=== PATIENT | female | born 1955 | race Caucasian/White ===

== ENCOUNTER 2021-02-24 13:00 | Outpatient (RCR) | payer OTHER, SELFPAY ==
--- NOTE | 2020-12-28 11:41 | STOPEVAL ---
SPEECH THERAPY INITIAL EVALUATION: Thank you for referring Ronald Christianson to [facility].? The patient is scheduled to be seen for therapy?2x/week for 5 weeks. Please review, sign, date and return this plan of care CHANNING. I agree with and certify that the following plan of care is medically necessary. Referring Physician Date Attending Provider: Isabela Tapia, Outpatient Past Medical History Past Medical History Source of Past Medical History Patient Neurological History Hx Cerebrovascular Accident (CVA) Yes: November 08, 2020 Cardiovascular History Hx Hypertension Yes Hx Internal Defibrillator Yes: pt unsure Respiratory History Hx Pneumonia Yes Hematological History Hx Other Hematological Disorders Yes:recent treatment for HEP C Evaluation Information Problem Diagnosis CVA Onset 11-07-20 Additional Evaluation Detail On the morning of 11-07 s/s started with difficulty texting. Pt laid down & didn't think anything of it. That next day she went to have lab work done for HEP C which she was being treated for at the time. She went to work and noticed she was having difficulty talking when she was making phone calls. 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 She was then taken to the hospital via an ambulance. CC: Pt's chief complaint is she has difficulty getting words out and its only sometimes . 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 She has not received ST since hospitalization which she was admitted for only 1 and half days. She states that she has been unable to drive. Prior Level of Function Activity Level (Last 3 Months) Occupation sports marketing internship Hand Dominance Right Activity of Daily Living Ability Independent Indoor/Home Mobility Independent Community Mobility Independent Stairs
--- NOTE | 2020-12-30 15:33 | PCSTNOTE ---
Patient did not show up for scheduled appointment this date. Pt was called re missed appt; she did not answer but a message was left instructing her when her next appt is and to call if she is unable to attend appt.
--- NOTE | 2021-01-19 09:26 | PCSTNOTE ---
Pt complained of difficulty finding words. Verbal expression goals were added to care plan upon informal assessment confirmed and revealed mild anomia.
--- NOTE | 2021-01-29 12:57 | STOPEVAL ---
SPEECH THERAPY PROGRESS NOTE AND PLAN OF CARE UPDATE: Thank you for referring Ronald Christianson to [facility].? The patient is scheduled to be seen for therapy?1x/week for 4 weeks. Please review, sign, date and return this plan of care CHANNING. I agree with and certify that the following plan of care is medically necessary. Referring Physician Date Attending Provider: Isabela Tapia, RE Language Evaluation Verbal Expression Overall Verbal Expression Ability Mild Deficits Comments Related to Verbal Expression Discussed use of compensatory strategies. Pt requires min assist in utilization. Throughout the course of therapy, anomia was more prominent that initially noted on evaluation; however, pt is progressing with the use of learned compensatory strategies. Apraxia Evaluation Apraxia Evaluation Imitation of Single Sounds (%) 100 Imitation of One-Syllable Words (%) 100 Imitation of Multi-Syllable Words (%) 90 Diadokokinetic Rates Accuracy Precise,Rate Normal Sound Sequencing (%) 80 Imitating Sentences (%) 90 Conversational Speech Characteristics Better Automatics,Error Awareness,Inconsistent Errors, Transposition Errors Apraxia Evaluation Comments Intermittent audible searching and occasionally exhibits numerous attempts during responding to questions. Speech Therapy Teaching Speech Therapy Teaching Teaching Topic Swallowing/Communication Topic Component Aphasia,Apraxia As Pertains To Verbal Expression Recipient(s) of Teaching Patient Learning Preferences Discussion Barriers to Learning None Readiness to Learn Excellent Teaching Method(s) Discussion Response(s) to Teaching Verbalizes Understanding ST Clinical Summary Clinical Summary ST Clinical Summary Overall, upon re evaluation, the pt presents with improvement in the areas of word finding and fluency. Pt is able to fluently produce connected speech with minimal oral motor planning impairment ; she rarely exhibits struggle behaviors/difficulty initiating or audible searching and no longer has numerous attempts with
--- NOTE | 2021-02-24 13:39 | STOPEVAL ---
SPEECH THERAPY DISCHARGE: Thank you for referring Ronald Christianson to [facility]. Pt has completed 11 [address] sessions focusing on verbal expression, processing,and fluency. Pt has achieved all set goals; therefore, ST discharge is recommended, Please review, sign, date and return this discharge plan CHANNING. I agree with ST discharge. Referring Physician Date Attending Provider: Isabela Tapia, *ST Outpatient Evaluation/Discharge Verbal Expression Automatic Cued Speech (% Accuracy (0-100 100 )) Open Ended Cued Speech (% Accuracy (0- 95 100)) WH Questions (% Accuracy (0-100)) 90 Confrontational Naming (% Accuracy (0- 100 100)) Stating Object Function (% Accuracy (0- 100 100)) Sentence Formation Given a Stimulus Word 90 (% Accuracy (0-100)) Sentence Formation in Spontaneous 90 Conversation Overall Verbal Expression Ability WFL Comments Related to Verbal Expression - divergent namin-10 in 60 seconds 90% accuracy. - listing steps/explaining/& answering why questions: 90% ST Clinical Summary Clinical Summary ST Clinical Summary Overall, upon re evaluation, the pt has improved in the areas of word finding and fluency. Pt is able to fluently produce connected speech with trace to minimal oral motor planning impairment ; she rarely exhibits struggle behaviors/difficulty initiating or audible searching and no longer has numerous attempts with verbalizations. 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 No further ST is recommended at this time . ST Services Indicated No Rehabilitation Potential Excellent Potential Barriers to Goal Achievements None Persons Assisting in Goal Achievement pt Patient/Caregiver Informed of Benefits/ Yes Risks of R
== END 2021-02-24 16:34 | disposition home or self-care (01) ==
LOC: ANHST 13:00
PROVIDERS: PCP Family Medicine; Visit Provider Family Medicine
DX: I63.9 Cerebral infarction, unspecified (principal)
CPT/HCPCS: 92507; 92523